=== PATIENT | female | born 1940 | race Two or more races ===

== ENCOUNTER 2018-07-22 14:19 | Outpatient (CLI) | payer OTHER ==
[~2018-07-22 14:19] MED LIST: LIPITOR20 MG PO
== END 2018-07-22 14:28 | disposition home or self-care (01) ==
LOC: SONOGRAMA 14:19
DX: S76.012A Strain of muscle, fascia and tendon of left hip, initial encounter (principal)

== ENCOUNTER 2018-08-25 10:56 | Outpatient (CLI) | payer OTHER | END 2018-08-25 11:07 | disposition home or self-care (01) | LOC: RAD 501 10:56 | DX: M19.071 Primary osteoarthritis, right ankle and foot (principal) ==

== ENCOUNTER 2018-10-26 08:12 | Outpatient (CLI) | payer OTHER | END 2018-10-26 08:25 | disposition home or self-care (01) | LOC: LAB 08:12 → EDSTATUS 08:12 → LAB 08:25 | DX: D64.89 Other specified anemias (principal); E88.89 Other specified metabolic disorders; D68.8 Other specified coagulation defects; N39.0 Urinary tract infection, site not specified; E11.9 Type 2 diabetes mellitus without complications; Z76.89 Persons encountering health services in other specified circumstances; I49.8 Other specified cardiac arrhythmias; M85.9 Disorder of bone density and structure, unspecified; M81.8 Other osteoporosis without current pathological fracture; E83.42 Hypomagnesemia; E56.1 Deficiency of vitamin K; A49.02 Methicillin resistant Staphylococcus aureus infection, unspecified site; M85.88 Other specified disorders of bone density and structure, other site ==

== ENCOUNTER 2018-11-02 10:31 | Inpatient (IN) | payer OTHER | END 2018-11-04 19:02 | DRG 502 | LOC: CIR.AMB 10:31 → SURG 21:28 → SURH 11-03 13:20 | PROVIDERS: Orthopaedic Surgery | PROC: 0MBM0ZZ Excision of Left Hip Bursa and Ligament, Open Approach (ICD-10-PCS; 2018-11-02) | PROC: 0LQK0ZZ Repair Left Hip Tendon, Open Approach (ICD-10-PCS; principal; 2018-11-02 07:00) | PROC: BQ31ZZZ Magnetic Resonance Imaging (MRI) of Left Hip (ICD-10-PCS; 2018-11-03) | DX: S76.012A Strain of muscle, fascia and tendon of left hip, initial encounter (principal); M70.62 Trochanteric bursitis, left hip ==

== ENCOUNTER 2018-11-19 09:31 | Outpatient (CLI) | payer OTHER | END 2018-11-19 09:56 | disposition home or self-care (01) | LOC: RAD 501 09:31 | DX: M25.552 Pain in left hip (principal) ==

== ENCOUNTER 2021-07-02 10:58 | Outpatient (CLI) | payer OTHER | END 2021-07-02 12:25 | disposition home or self-care (01) | LOC: RAD 10:58 | PROVIDERS: ATTEND Orthopaedic Surgery | DX: M17.12 Unilateral primary osteoarthritis, left knee (principal); M25.561 Pain in right knee; M25.562 Pain in left knee ==

== ENCOUNTER 2022-01-21 09:05 | Outpatient (CLI) | payer OTHER | END 2022-01-21 09:14 | disposition home or self-care (01) | LOC: SONOGRAMA 09:05 | PROVIDERS: ATTEND Internal Medicine Cardiovascular Disease | DX: Z13.6 Encounter for screening for cardiovascular disorders (principal); Z82.49 Family history of ischemic heart disease and other diseases of the circulatory system; I71.4 Abdominal aortic aneurysm, without rupture ==

== ENCOUNTER 2023-04-02 09:37 | Outpatient (CLI) | payer OTHER | END 2023-04-02 09:47 | disposition home or self-care (01) | LOC: RAD 09:37 | PROVIDERS: ATTEND Family Medicine | DX: S70.02XA Contusion of left hip, initial encounter (principal) ==

== ENCOUNTER 2023-06-30 14:16 | Outpatient (CLI) | payer OTHER | END 2023-06-30 14:23 | disposition home or self-care (01) | LOC: RAD 14:16 | PROVIDERS: ATTEND Chiropractor | DX: M54.59 Other low back pain (principal); M54.2 Cervicalgia; M99.01 Segmental and somatic dysfunction of cervical region; M99.02 Segmental and somatic dysfunction of thoracic region; M99.03 Segmental and somatic dysfunction of lumbar region ==

== ENCOUNTER 2024-03-03 08:56 | Outpatient (CLI) | payer OTHER | END 2024-03-03 08:58 | disposition home or self-care (01) | LOC: NUCLEAR 08:56 | PROVIDERS: ATTEND Physical Medicine & Rehabilitation Pain Medicine | DX: I82.401 Acute embolism and thrombosis of unspecified deep veins of right lower extremity (principal); I82.402 Acute embolism and thrombosis of unspecified deep veins of left lower extremity; I73.9 Peripheral vascular disease, unspecified ==

== ENCOUNTER 2024-03-08 10:54 | Outpatient (CLI) | payer OTHER | END 2024-03-08 10:55 | disposition home or self-care (01) | LOC: NUCLEAR 10:54 | PROVIDERS: ATTEND Physical Medicine & Rehabilitation Pain Medicine | DX: I82.401 Acute embolism and thrombosis of unspecified deep veins of right lower extremity (principal); I82.402 Acute embolism and thrombosis of unspecified deep veins of left lower extremity; I73.9 Peripheral vascular disease, unspecified ==

== ENCOUNTER 2024-08-21 10:04 | Outpatient (CLI) | payer OTHER | END 2024-08-21 10:07 | disposition home or self-care (01) | LOC: RAD 10:04 | PROVIDERS: ATTEND Family Medicine | DX: R06.00 Dyspnea, unspecified (principal) ==

== ENCOUNTER 2024-09-27 08:47 | Outpatient (CLI) | payer OTHER | END 2024-09-27 08:48 | disposition home or self-care (01) | LOC: NUCLEAR 08:47 | PROVIDERS: ATTEND Family Medicine | DX: R06.00 Dyspnea, unspecified (principal); R60.0 Localized edema ==

== ENCOUNTER → 2025-08-19 09:34 | Outpatient (CLI) | payer OTHER | END | disposition home or self-care (01) | LOC: NUCLEAR 09:34 | PROVIDERS: ATTEND Family Medicine | DX: I87.2 Venous insufficiency (chronic) (peripheral) (principal) ==